=== PATIENT | female | born 1935 | race Caucasian/White ===

== ENCOUNTER 2020-07-30 12:02 | Emergency (ER) | payer OTHER ==
[~2020-07-30] VITALS: Ht 154.9 cm; Wt 77.1 kg
[2020-07-30 12:20] VITALS: BP_SYST 141
--- NOTE | 2020-07-30 12:21 | NUR ---
Patient to TENT 1 to gown for evaluation. Side rails up.
--- NOTE | 2020-07-30 12:22 | NUR ---
PT presented to ER C/O foreign body. PT was self dislodged foreign body during triage.
--- NOTE | 2020-07-30 12:33 | NUR ---
LANETTE MARTINEZ examining patient.
--- NOTE | 2020-07-30 13:15 | NUR ---
Patient given written and verbal discharge instructions and verbalizes understanding. ER MD discussed with patient the results and treatment provided. Patient in stable condition. ID arm band removed. NO Rx given. Patient educated on pain management and to follow up with PMD. Pain Scale 0/10 . Opportunity for questions provided and answered. Medication side effect fact sheet provided.
--- NOTE | 2020-07-30 19:05 | NUR ---
Sera calle in ED - 07/30/20 at 1907 by SDEDTD PT presented to ER C/O foreign body. PT was self dislodged foreign body during triage.
== END 2020-07-30 13:15 | disposition home or self-care (01) ==
LOC: SED 12:02
DX: K22.2 Esophageal obstruction (principal)
CPT/HCPCS: 99281

== ENCOUNTER 2020-08-02 18:21 | Emergency (ER) | payer OTHER ==
[~2020-08-02] VITALS: Ht 167.6 cm; Wt 74.8 kg
[2020-08-02 18:28] VITALS: BP_SYST 160
[2020-08-02] MEDS ORDERED: ONDANSETRON HCL 4 MG/2 ML VIAL IVP ONE (19:15)
[2020-08-02] MEDS ORDERED: NACL 0.9% 1,000 ML IV ONE (19:15)
[2020-08-02 20:08] LABS: BASOPHILS # (AUTO) 0.1 K/uL (0.0-0.2); BASOPHILS % (AUTO) 0.9 % (0.0-2.0); EOSINOPHILS # (AUTO) 0.2 K/uL (0.0-0.4); EOSINOPHILS % (AUTO) 2.2 % (0.0-4.0); HEMATOCRIT 40.5 % (36-48); HEMOGLOBIN 13.6 g/dL (12.0-16.0); LYMPHOCYTES % (AUTO) 13.3 % (20.5-51.5); MEAN CORPUSCULAR HEMOGLOBIN 31 pg (27-31); MEAN CORPUSCULAR HGB CONC 34 % (32-36); MEAN CORPUSCULAR VOLUME 93 fL (79.0-98.0); MONOCYTES # (AUTO) 0.5 K/uL (0.0-1.0); MONOCYTES % (AUTO) 7.1 % (1.7-9.3); NEUTROPHILS # (AUTO) 5.5 K/uL (1.8-7.7); NEUTROPHILS % (AUTO) 76.5 % (40.0-70.0); PLATELET COUNT (AUTO) 196 K/uL (130-430); RED BLOOD CELL COUNT(AUTO) 4.35 MIL/uL (4.2-6.2); RED CELL DISTRIBUTION WIDTH 13.5 % (9.0-15.0); WHITE BLOOD COUNT (AUTO) 7.2 K/uL (4.8-10.8)
[2020-08-02 20:22] LABS: ANION GAP 9 (5-15); CALCIUM 8.5 mg/dL (8.4-11.0); CHLORIDE 108 mmol/L (98-107); CREATININE 1.19 mg/dL (0.55-1.30); GLUCOSE 150 mg/dL (70-99); POTASSIUM 3.3 mmol/L (3.5-5.1); SODIUM SERUM 141 mmol/L (136-145); UREA NITROGEN, BLOOD 13 mg/dL (8-21)
[2020-08-02 20:30] LABS: BILIRUBIN,URINE NEGATIVE (NEGATIVE); BLOOD, URINE NEGATIVE (NEGATIVE); CLARITY/URINE CLEAR (CLEAR); COLOR,URINE YELLOW (YELLOW); GLUCOSE,URINE NEGATIVE (NEGATIVE); KETONES,URINE NEGATIVE (NEGATIVE); LEUKOCYTE ESTERASE ,URINE 1+ (NEGATIVE); NITRITE, URINE POSITIVE (NEGATIVE); PROTEIN URINE NEGATIVE (NEGATIVE); UROBILINOGEN,URINE 0.2 (0.2-1.0)
[2020-08-02 20:36] LABS: ALANINE AMINOTRANSFERASE 24 U/L (12-78); ALBUMIN 3.1 g/dL (3.4-4.8); ASPARTATE AMINOTRANSFERASE 17 U/L (10-37); LIPASE 80 U/L (73-393); TOTAL BILIRUBIN 0.3 mg/dL (0.0-1.0)
[2020-08-02 21:18] LABS: RBC,URINE 0-3 /HPF (0-3)
[2020-08-02 21:19] LABS: BACTERIA,URINE MODERATE /HPF (None Seen)
[2020-08-02] MEDS ORDERED: CEPHALEXIN 125 MG/5 ML, 100 ML BTL PO ONE (21:30)
[2020-08-02 21:57] VITALS: BP_SYST 152
== END 2020-08-02 21:57 | disposition home or self-care (01) ==
LOC: SED 18:21
DX: R55 Syncope and collapse (principal); I10 Essential (primary) hypertension; Z88.5 Allergy status to narcotic agent
CPT/HCPCS: 36415; 70450; 76376; 80053; 81000; 83690; 85025; 87086; 93005; 96361; 96374; 99285; J2405; J7030

== ENCOUNTER 2024-03-23 17:56 | Emergency (ER) | payer OTHER ==
[~2024-03-23] VITALS: Ht 152.4 cm; Wt 73.9 kg
[~2024-03-23 17:56] MED LIST: CYAN50009 PO; FLAX100032 PO; GLU500 PO; L.AC1CAP6 PO; OSC500 PO; OXCA150T5 PO; PRO40 PO; SIMV-345 PO; SYN50 PO; VITD2000 PO
[2024-03-23 18:09] VITALS: BP_SYST 157; PULSE 99; RESP 17; TEMP 97.1; O2SAT 99
[2024-03-23 18:51] LABS: BASOPHILS # (AUTO) 0.1 K/uL (0.0-0.2); EOSINOPHILS # (AUTO) 0.1 K/uL (0.0-0.4); EOSINOPHILS % (AUTO) 0.9 % (0.0-4.0); HEMATOCRIT 43.8 % (36-48); HEMOGLOBIN 14.6 g/dL (12.0-16.0); LYMPHOCYTES # (AUTO) 1.2 K/uL (1.0-5.5); LYMPHOCYTES % (AUTO) 10.1 % (20.5-51.5); MEAN CORPUSCULAR HEMOGLOBIN 32 pg (27-31); MEAN CORPUSCULAR HGB CONC 33 % (32-36); MEAN CORPUSCULAR VOLUME 95 fL (79.0-98.0); MONOCYTES # (AUTO) 0.8 K/uL (0.0-1.0); MONOCYTES % (AUTO) 6.9 % (1.7-9.3); NEUTROPHILS # (AUTO) 9.7 K/uL (1.8-7.7); NEUTROPHILS % (AUTO) 81.1 % (40.0-70.0); PLATELET COUNT (AUTO) 224 K/uL (130-430); RED BLOOD CELL COUNT(AUTO) 4.59 MIL/uL (4.2-6.2); RED CELL DISTRIBUTION WIDTH 13.2 % (9.0-15.0)
[2024-03-23] MEDS: NACL 0.9% 1,000 ML IV ONE (18:55)
[2024-03-23 18:57] LABS: ALANINE AMINOTRANSFERASE 19 U/L (12-78); ALBUMIN 3.4 g/dL (3.4-4.8); ANION GAP 10 (5-15); ASPARTATE AMINOTRANSFERASE 19 U/L (10-37); BILIRUBIN,DIRECT 0.1 mg/dL (0.0-0.3); CALCIUM 9.9 mg/dL (8.4-11.0); CARBON DIOXIDE 27 mmol/L (23-29); CHLORIDE 103 mmol/L (98-107); CREATININE 0.94 mg/dL (0.55-1.30); GLUCOSE 140 mg/dL (74-106); LIPASE 45 U/L (16-77); POTASSIUM 3.6 mmol/L (3.5-5.1); SODIUM SERUM 140 mmol/L (136-145); TOTAL BILIRUBIN 0.3 mg/dL (0.0-1.0); UREA NITROGEN, BLOOD 20 mg/dL (8-21)
[2024-03-23] MEDS: KETOROLAC TROMETHAMINE 30 MG VIAL IVP ONE (19:06)
[2024-03-23] MEDS: ONDANSETRON HCL 4 MG/2 ML VIAL IVP ONE (19:06)
[2024-03-23 19:39] LABS: BILIRUBIN,URINE NEGATIVE (NEGATIVE); CLARITY/URINE CLOUDY (CLEAR); COLOR,URINE YELLOW (YELLOW); GLUCOSE,URINE NEGATIVE (NEGATIVE); KETONES,URINE TRACE (NEGATIVE); LEUKOCYTE ESTERASE ,URINE 2+ (NEGATIVE); NITRITE, URINE POSITIVE (NEGATIVE); PROTEIN URINE TRACE (NEGATIVE)
[2024-03-23 19:44] LABS: BLOOD, URINE TRACE (NEGATIVE)
[2024-03-23 20:09] LABS: BACTERIA,URINE MANY /HPF (None Seen); CALCIUM OXALATE CRYSTALS,UR 0-10 /HPF (None Seen); MUCUS,URINE None Seen /LPF (None Seen); WBC,URINE 50-80 /HPF (0-3)
[2024-03-23] MEDS: cefTRIAXone 1 GM in D5W 50 ML IV ONE (20:18)
[2024-03-23] MEDS ORDERED: cefTRIAXone 1 GM VIAL ONE (20:19)
[2024-03-23] MEDS: PANTOPRAZOLE SODIUM 40 MG/VIAL (PROTONIX) IVP ONE (20:52)
[2024-03-23] MEDS ORDERED: ONDA-8 TL (21:48)
[2024-03-23] MEDS ORDERED: CEPH-548 PO (21:48)
[2024-03-23] MEDS ORDERED: IBUP-1969 PO (21:48)
[2024-03-23 22:03] VITALS: BP_SYST 137; PULSE 99; RESP 16; TEMP 98.2; O2SAT 96
== END 2024-03-23 22:03 | disposition home or self-care (01) ==
LOC: SED 17:56
DX: N39.0 Urinary tract infection, site not specified (principal); R10.30 Lower abdominal pain, unspecified; R11.0 Nausea; E11.9 Type 2 diabetes mellitus without complications; I10 Essential (primary) hypertension; Z98.890 Other specified postprocedural states; Z88.5 Allergy status to narcotic agent; Z79.899 Other long term (current) drug therapy; Z79.2 Long term (current) use of antibiotics
CPT/HCPCS: 99285; 74176; 96365; 96375; 96361; 80076; 80048; 81001; 83690; 85025; 87040; 87086; 36415; 82948; 83605; J0696; J1885; J2405; J2470; J7030; 81000; 81015; 87186